=== PATIENT | female | born 1980 | race Caucasian/White ===

== ENCOUNTER 2016-07-06 18:51 | Emergency (ER) | payer MEDICAID, OTHER ==
[~2016-07-06] VITALS: Ht 157.5 cm; Wt 57.0 kg
[~2016-07-06 18:51] MED LIST: NITR-58; PHEN-616; [UNRECOGNIZED DRUG - OTHER]
[2016-07-06 19:02] VITALS: Ht 157.5 cm; Wt 57.0 kg
--- NOTE | 2016-07-06 19:23 | ERA ---
ER Documentation Chief Complaint Date/Time DATE: 07/06/16 TIME: 19:22 Chief Complaint dizziness HPI The patient is a 35-year-old female, presenting to the ER because of intermittent dizziness for the last 4-5 days. She denies syncope, near syncope , weakness, neck pain, chest pain, dyspnea, abdominal pain, vomiting, dysuria, diarrhea. She does not smoke, drink Past medical history: None Past surgical history: Tonsillectomy ROS All systems reviewed and are negative except as per history of present illness. Medications Home Meds Reported Medications [Nortin] No Conflict Check 01/09/10 Phenazopyridine Hcl* (Phenazopyridine Hcl*) 200 Mg Tablet 01/09/10 Nitrofurantoin Monohyd Macrocr* (Macrobid*) 100 Mg Capsr 01/09/10 Allergies Allergies: Coded Allergies: No Known Allergy (Verified Allergy, Mild, 07/15/10) No Known Drug Allergy (Verified Allergy, Mild, 01/09/10) PMhx/Soc History of Surgery: No Anesthesia Reaction: No Hx Neurological Disorder: No Hx Respiratory Disorders: No Hx Cardiac Disorders: No Hx Psychiatric Problems: No Hx Miscellaneous Medical Probl: No Hx Alcohol Use: No Hx Substance Use: No Hx Tobacco Use: No Physical Exam Vitals Vital Signs Date Time Temp Pulse Resp B/P Pulse Ox O2 Delivery O2 Flow Rate FiO2 07/06/16 19:02 98.5 85 20 124/81 98 Physical Exam Const: No acute distress. Head: Atraumatic. Eyes: Normal Conjunctiva. ENT: Normal External Ears, Nose and Mouth. Bilateral tympanic membranes and oropharynx are within normal limits Neck: Full range of motion. No meningismus. Resp: Clear to auscultation bilaterally. Cardio: Regular rate and rhythm, no murmurs. Abd: Soft, non distended, normal bowel sounds, non tender. Skin: No petechiae or rashes. Back: No midline or flank tenderness. Ext: No cyanosis, or edema. Neur: Awake and alert. No focal deficit Psych: Normal Mood and Affect. Result Diagram: 07/06/16201307/06/162013 Results 24 hrs Laboratory Tests Test 07/06/16 20:14 07/06/16 20:26 White Blood Count 4.610^3/ul Red Blood Count 4.9210^6/ul Hemoglobin 12.3g/dl Hematocrit 39.1% Mean Corpuscular Volume 79.5fl Mean Corpuscular Hemoglobin 25.0pg Mean Corpuscular Hemoglobin Concent 31.5g/dl Red Cell Distribution Width 13.5% Platelet Count 60256^3/UL Mean Platelet Volume 12.7fl Neutrophils % 36.7% Lymphocytes % 42.7% Monocytes % 12.2% Eosinophils % 7.8% Basophils % 0.4% Nucleated Red Blood Cells % 0.0/100WBC Neutrophils # 1.710^3/ul Lymphocytes # 2.010^3/ul Monocytes # 0.610^3/ul Eosinophils # 0.410^3/ul Basophils # 0.010^3/ul Nucleated Red Blood Cells # 0.010^3/ul Sodium Level 140mmol/L Potassium Level 3.9mmol/L Chloride Level 106mmol/L Carbon Dioxide Level 24mmol/L Anion Gap 14 Blood Urea Nitrogen 11mg/dl Creatinine 0.80mg/dl Glucose Level 108mg/dl Calcium Level 9.1mg/dl Bedside Glucose 110mg/dL Procedures/MDM EKG: Read by emergency physician Rate/Rhythm: Normal Sinus Rhythm 71 beats/min QRS, ST, T-waves: No ST elevation, nonspecific T abnormality, no PVC Impression: Abnormal EKG MEDICAL MAKING DECISION: The patient is a 35-year-old female, presenting with acute dizziness of unclear etiology. The differential diagnoses considered include but are not limited to central causes such as cerebellar infarct, cerebellar hemorrhage, cerebellar tumor, acoustic neuroma, peripheral causes such as benign positional vertigo, labyrinthitis, medication, Meniere's disease. Departure Diagnosis: Primary Impression: Dizziness Condition: Good Comments She was discharged with Antivert I discussed the findings with the patient. I advised the patient to follow-up with the primary physician in about 1-2 days, sooner if needed and return if any concern. The patient's blood pressure was elevated (>120/80) but appears stable without evidence of hypertension emergency or urgency. The patient was counseled about the risks of hypertension and urged to pursue outpatient monitoring and therapy within a week with their primary care physician. ADALGISA OCONNOR MD Jul 06, 2016 19:22
[2016-07-06 20:25] LABS: ADD SCAN DIFF NO
[2016-07-06 20:36] LABS: BASOPHILS % 0.4 % (0.0-2.0); EOSINOPHILS # 0.4 10^3/ul (0.0-0.5); EOSINOPHILS % 7.8 % (0.0-7.0); HEMATOCRIT 39.1 % (37.0-47.0); HEMOGLOBIN 12.3 g/dl (12.0-16.0); LYMPHOCYTES % 42.7 % (15.0-51.0); MEAN CORPUSCULAR HGB CONC 31.5 g/dl (32.0-37.0); MEAN CORPUSCULAR VOLUME 79.5 fl (82.0-101.0); MEAN PLATELET VOLUME 12.7 fl (7.4-10.4); MONOCYTE # 0.6 10^3/ul (0.3-0.9); MONOCYTES % 12.2 % (0.0-11.0); NEUTROPHIL # 1.7 10^3/ul (1.6-7.5); NEUTROPHILS % 36.7 % (39.0-77.0); PLATELET COUNT 252 10^3/UL (140-415); POTASSIUM 3.9 mmol/L (3.5-5.1); RED BLOOD COUNT 4.92 10^6/ul (4.20-5.40); RED CELL DISTRIBUTION WIDTH 13.5 % (11.5-14.5); WHITE BLOOD COUNT 4.6 10^3/ul (4.8-10.8)
[2016-07-06 20:39] LABS: CREATININE 0.8 mg/dl (0.44-1.00)
[2016-07-06 20:40] LABS: CALCIUM 9.1 mg/dl (8.4-10.2)
[2016-07-06] MEDS ORDERED: MECL12.574 PO (20:45)
[2016-07-06 21:00] VITALS: BP 108/73; PULSE 76; RESP 16
== END 2016-07-06 21:00 | disposition home or self-care (01) ==
LOC: FTE 18:51
DX: R42 Dizziness and giddiness (principal)
CPT/HCPCS: 36415; 80048; 82962; 85025; 93005

== ENCOUNTER 2016-11-18 10:31 | Emergency (ER) | payer MEDICAID, OTHER ==
[~2016-11-18] VITALS: Ht 160 cm; Wt 57.5 kg
[~2016-11-18 10:31] MED LIST changes: +MECL12.574 PO
[2016-11-18 10:34] VITALS: Ht 160 cm; Wt 57.5 kg
[2016-11-18] MEDS ORDERED: HYDROCODONE/APAP (5/325) TAB PO ONE (11:30)
[2016-11-18 11:44] LABS: ADD UMIC YES; UR ASCORBIC ACID NEGATIVE (NEGATIVE); UR BILIRUBIN (Dip) NEGATIVE (NEGATIVE); UR BLOOD (Dip) 1+ mg/dL (NEGATIVE); UR CLARITY CLEAR (CLEAR); UR COLOR STRAW (YELLOW); UR GLUCOSE (Dip) NEGATIVE (NEGATIVE); UR KETONES (Dip) NEGATIVE (NEGATIVE); UR LEUKOCYTE ESTERASE (Dip) NEGATIVE Leu/ul (NEGATIVE); UR NITRITE (Dip) NEGATIVE (NEGATIVE); UR RBC 0 /HPF (0-5); UR SPECIFIC GRAVITY (Dip) 1.008 (1.003-1.030); UR TOTAL PROTEIN (Dip) NEGATIVE (NEGATIVE); UR UROBILINOGEN (Dip) NEGATIVE (NEGATIVE)
[2016-11-18 11:49] LABS: ALBUMIN 4.1 g/dl (3.3-4.9); ALBUMIN/GLOBULIN RATIO 1.13; BILIRUBIN,INDIRECT 0.3 mg/dl (0-1.1); BILIRUBIN,TOTAL 0.3 mg/dl (0.2-1.3); CREATININE 0.76 mg/dl (0.44-1.00); POTASSIUM 3.9 mmol/L (3.5-5.1); TOTAL PROTEIN 7.7 g/dl (6.1-8.1)
--- NOTE | 2016-11-18 11:53 | RADRPT ---
PROCEDURE: US Pelvis. CLINICAL INDICATION: Pelvic pain. TECHNIQUE: Multiple sonographic images of the pelvis were obtained utilizing a transabdominal and endovaginal technique. The images were reviewed on a PACS workstation. COMPARISON: Pelvic ultrasound from 02/15/2008 FINDINGS: The uterus is visualized and measures 7.9 x 4.2 x 6.2 cm. The endometrial echo complex is normal and measures 8.4 mm. There is no evidence for free fluid. The right ovary has a normal echotexture and measures 2.8 x 1.4 x 1.8 cm. The left ovary has a normal echotexture and measures 2.5 x 1.4 x 1.7 c m. No adnexal masses are noted. IMPRESSION: 1. Unremarkable pelvic ultrasound. RPTAT: [facility] Physician Humberto Date Time Electronically viewed and signed by Physician Humberto on 11/18/2016 11:52 /
--- NOTE | 2016-11-18 12:11 | RADRPT ---
PROCEDURE: CT Abdomen and pelvis without contrast. CLINICAL INDICATION: Pelvic pain for 1 week TECHNIQUE: CT scan of the abdomen and pelvis without contrast was performed on a multidetector hig h-resolution CT scan. . Coronal and sagittal reformatted images were obtained from the axial cox monett e images. Standard CT scan of the abdomen pelvis without contrast protocols were performed. The total exam CTDI equals 6.1 a mGy and the total exam DLP equals 316.57 mGy-cm. One or more of the following dose reduction techniques were used: - Automated exposure control. - Adjustment of the mA and/or kV according to patient size. Use of iterative reconstruction technique. COMPARISON: Pelvic ultrasound same day FINDINGS: The appendix is unremarkable. There is a tiny hiatal hernia. The stomach is otherwise unremarkable . The small and large bowel are unremarkable. Negative for intra-abdominal free air, free fluid, a bscesses or lymphadenopathy. The kidneys are normal in size without hydronephrosis or intra renal masses bilaterally. There is a punctate 1-2 mm inferior left renal nonobstructing calcified calculus. No other calcified renal ca lculi. The urinary bladder is unremarkable. The uterus is anteverted anteflexed but otherwise unre markable. No evidence of adnexal masses. The liver spleen pancreas and adrenal glands are unremarkable. The gallbladder is unremarkable and there is no evidence biliary ductal dilation. The aorta is unremarkable. The abdominal and pelvic yee are unremarkable. The lung bases are unr emarkable. The osseous structures are unremarkable. IMPRESSION: 1. Punctate 1-2 mm inferior left renal nonobstructing calcified calculus. No other urinary calcifi ed calculi. No obstructive uropathy. 2. Unremarkable appendix. 3. Tiny hiatal hernia. RPTAT:[facility] Physician Marielle Date Time Electronically viewed and signed by Physician Marielle on 11/18/2016 12:11 BM/
[2016-11-18 12:48] LABS: BASOPHILS % 0.8 % (0.0-2.0); EOSINOPHILS # 0.2 10^3/ul (0.0-0.5); EOSINOPHILS % 4.4 % (0.0-7.0); HEMATOCRIT 36.7 % (37.0-47.0); HEMOGLOBIN 11.8 g/dl (12.0-16.0); LYMPHOCYTES # 1.9 10^3/ul (0.8-2.9); LYMPHOCYTES % 37.5 % (15.0-51.0); MEAN CORPUSCULAR HGB CONC 32.2 g/dl (32.0-37.0); MEAN PLATELET VOLUME 12.4 fl (7.4-10.4); MONOCYTE # 0.4 10^3/ul (0.3-0.9); MONOCYTES % 7.5 % (0.0-11.0); NEUTROPHIL # 2.5 10^3/ul (1.6-7.5); NEUTROPHILS % 49.4 % (39.0-77.0); PLATELET COUNT 215 10^3/UL (140-415); RED BLOOD COUNT 4.53 10^6/ul (4.20-5.40); RED CELL DISTRIBUTION WIDTH 13.9 % (11.5-14.5)
[2016-11-18] MEDS ORDERED: NAPR-260 PO (12:55)
[2016-11-18] MEDS ORDERED: TAMS-14 PO (12:55)
--- NOTE | 2016-11-18 13:44 | ERD ---
ER Documentation Chief Complaint Date/Time DATE: 11/18/16 TIME: 13:36 Chief Complaint ap x 1 week, back pain x 1 mos HPI 35-year-old female complaining of abdominal pain 1 week and back pain 1 month. Patient states that the pain is constant. It feels like a sharp stabbing pain on the inside. Primary located in the left lower quadrant. She has not taken any medications for this pain. No fevers. Last are much previous October 21. Patient is also complaining of a cystlike structure in her axilla. Patient states has been there for multiple years, she was seen at the surgery center and told it was nothing to worry about. Denies medical problems NKDA Surgeries: Tonsillitis Denies smoking ROS All systems reviewed and are negative except as per history of present illness. Medications Home Meds Active Scripts Naproxen* (Naprosyn*) 500 Mg Tablet, 500 MG PO BID Y for PAIN AND/OR INFLAMMATION, #30 TAB Prov:MARI LONDON PA-C 11/18/16 Tamsulosin Hcl* (Flomax*) 0.4 Mg Cap.er.24h, 0.4 MG PO QPM, #30 CAP Prov:MARI LONDON PA-C 11/18/16 Meclizine Hcl* (Antivert*) 12.5 Mg Tab, 25 MG PO Q6H Y for DIZZINESS, #20 TAB Prov:ADALGISA OCONNOR MD 07/06/16 Reported Medications [Nortin] No Conflict Check 01/09/10 Phenazopyridine Hcl* (Phenazopyridine Hcl*) 200 Mg Tablet 01/09/10 Nitrofurantoin Monohyd Macrocr* (Macrobid*) 100 Mg Capsr 01/09/10 Allergies Allergies: Coded Allergies: No Known Allergy (Verified Allergy, Mild, 07/15/10) No Known Drug Allergy (Verified Allergy, Mild, 01/09/10) PMhx/Soc History of Surgery: Yes (TONSILECTOMY 2004) Anesthesia Reaction: No Hx Neurological Disorder: No Hx Respiratory Disorders: No Hx Cardiac Disorders: No Hx Psychiatric Problems: No Hx Miscellaneous Medical Probl: No Hx Alcohol Use: No Hx Substance Use: No Hx Tobacco Use: No Smoking Status: Never smoker Physical Exam Vitals Vital Signs Date Time Temp Pulse Resp B/P Pulse Ox O2 Delivery O2 Flow Rate FiO2 11/18/16 10:34 97.8 69 18 139/63 99 Physical Exam Resp: Clear to auscultation bilaterally Cardio: Regular rate and rhythm, no murmurs Abd: Soft, non tender, non distended. Normal bowel sounds. No rebound tenderness. Skin: No petechiae or rashes. fluctuant mass with no erythema under bilateral axilla. No streaking. Back: No midline or flank tenderness. No midline tenderness. No john stepoffs. Result Diagram: 11/18/16 1117 11/18/16 1117 Results 24 hrs Laboratory Tests Test 11/18/16 11:17 White Blood Count 5.010^3/ul Red Blood Count 4.5310^6/ul Hemoglobin 11.8g/dl Hematocrit 36.7% Mean Corpuscular Volume 81.0fl Mean Corpuscular Hemoglobin 26.0pg Mean Corpuscular Hemoglobin Concent 32.2g/dl Red Cell Distribution Width 13.9% Platelet Count 35279^3/UL Mean Platelet Volume 12.4fl Neutrophils % 49.4% Lymphocytes % 37.5% Monocytes % 7.5% Eosinophils % 4.4% Basophils % 0.8% Nucleated Red Blood Cells % 0.0/100WBC Neutrophils # 2.510^3/ul Lymphocytes # 1.910^3/ul Monocytes # 0.410^3/ul Eosinophils # 0.210^3/ul Basophils # 0.010^3/ul Nucleated Red Blood Cells # 0.010^3/ul Urine Color STRAW Urine Clarity CLEAR Urine pH 5.0 Urine Specific [place] 1.008 Urine Ketones NEGATIVEmg/dL Urine Nitrite NEGATIVEmg/dL Urine Bilirubin NEGATIVEmg/dL Urine Urobilinogen NEGATIVEmg/dL Urine Leukocyte Esterase NEGATIVELeu/ul Urine Microscopic RBC 0/HPF Urine Microscopic WBC 0/HPF Urine Hemoglobin 1+mg/dL Urine Glucose NEGATIVEmg/dL Urine Total Protein NEGATIVEmg/dl Sodium Level 143mmol/L Potassium Level 3.9mmol/L Chloride Level 104mmol/L Carbon Dioxide Level 23mmol/L Anion Gap 20 Blood Urea Nitrogen 10mg/dl Creatinine 0.76mg/dl Glucose Level 92mg/dl Calcium Level 9.0mg/dl Total Bilirubin 0.3mg/dl Direct Bilirubin 0.00mg/dl Indirect Bilirubin 0.3mg/dl Aspartate Amino Transf (AST/SGOT) 20IU/L Alanine Aminotransferase (ALT/SGPT) 25IU/L Alkaline Phosphatase 58IU/L Total Protein 7.7g/dl Albumin 4.1g/dl Globulin 3.60g/dl Albumin/Globulin Ratio 1.13 Lipase 173U/L Current Medications Medications (Trade) Dose Ordered Sig/Aryan Route PRN Reason Start Time Stop Time Status Last Admin Dose Admin Acetaminophen/ Hydrocodone Bitart ([place] (5/325)) 1 tab ONCE ONCE PO 11/18/16 11:30 11/18/16 11:31 DC 11/18/16 12:02 Procedures/MDM DIAGNOSTIC IMAGING REPORT Patient: CECIL GIORDANO : 1980 Age: 35 Sex: F MR #: [id number] DOS: 11/18/16 1101 Ordering MD: CHARLES LONDON PA-C Location: [facility] Room/Bed: PROCEDURE: CT Abdomen and pelvis without contrast. CLINICAL INDICATION: Pelvic pain for 1 week TECHNIQUE: CT scan of the abdomen and pelvis without contrast was performed on a multidetector high-resolution CT scan. . Coronal and sagittal reformatted images were obtained from the axial source images. Standard CT scan of the abdomen pelvis without contrast protocols were performed. The total exam CTDI equals 6.1 a mGy and the total exam DLP equals 316.57 mGy- cm. One or more of the following dose reduction techniques were used: - Automated exposure control. - Adjustment of the mA and/or kV according to patient size. Use of iterative reconstruction technique. COMPARISON: Pelvic ultrasound same day FINDINGS: The appendix is unremarkable. There is a tiny hiatal hernia. The stomach is otherwise unremarkable. The small and large bowel are unremarkable. Negative for intra-abdominal free air, free fluid, abscesses or lymphadenopathy. The kidneys are normal in size without hydronephrosis or intra renal masses bilaterally. There is a punctate 1-2 mm inferior left renal nonobstructing calcified calculus. No other calcified renal calculi. The urinary bladder is unremarkable. The uterus is anteverted anteflexed but otherwise unremarkable. No evidence of adnexal masses. The liver spleen pancreas and adrenal glands are unremarkable. The gallbladder is unremarkable and there is no evidence biliary ductal dilation. The aorta is unremarkable. The abdominal and pelvic yee are unremarkable. The lung bases are unremarkable. The osseous structures are unremarkable. IMPRESSION: 1. Punctate 1-2 mm inferior left renal nonobstructing calcified calculus. No other urinary calcified calculi. No obstructive uropathy. 2. Unremarkable appendix. 3. Tiny hiatal hernia. DIAGNOSTIC IMAGING REPORT Patient: CECIL GIORDANO : 1980 Age: 35 Sex: F MR #: [id number] DOS: 11/18/16 1101 Ordering MD: CHARLES LONDON PA-C Location: E Room/Bed: PROCEDURE: US Pelvis. CLINICAL INDICATION: Pelvic pain. TECHNIQUE: Multiple sonographic images of the pelvis were obtained utilizing a transabdominal and endovaginal technique. The images were reviewed on a PACS workstation. COMPARISON: Pelvic ultrasound from 02/15/2008 FINDINGS: The uterus is visualized and measures 7.9 x 4.2 x 6.2 cm. The endometrial echo complex is normal and measures 8.4 mm. There is no evidence for free fluid. The right ovary has a normal echotexture and measures 2.8 x 1.4 x 1.8 cm. The left ovary has a normal echotexture and measures 2.5 x 1.4 x 1.7 cm. No adnexal masses are noted. IMPRESSION: 1. Unremarkable pelvic ultrasound. ER Course: [place] given in ED. Urine negative MDM: 35 yr old female complaining of abdominal pain. I have low suspicion for choledocholithiasis, cholecystitis, cholangitis. Patient not have been pain in the right upper quadrant. Patient exam is not concerning. I will suspicion for bowel obstruction, appendicitis, pelvic emergency, ectopic , pyelonephritis, or other acute abdominal emergencies. Patient's CT scan is within normal limits and blood work is within normal limits. I have low suspicion for acute renal failure patients BUN/creatinine levels are within normal limits. Patient's pain is likely associated with nonobstructing calculi seen on CT scan. A low suspicion for abscess within the axilla. Patient's exam is within normal limits and is likely associated with a lipoma. There is no erythema or redness. Patient's vital signs are stable. Patient is discharged with pain medication and recommended to follow-up with primary care doctor within 1 to days for close evaluation. Patient was told if symptoms change or worsen to return to the ER immediately. Patient understood and complied. All paperwork and results given at the time of discharge. Departure Diagnosis: Primary Impression: Kidney stone Additional Impression: Lipoma Condition: Stable Patient Instructions: Kidney Stone W/ Colic Referrals: COMMUNITY CLINICS YOU HAVE RECEIVED A MEDICAL SCREENING EXAM AND THE RESULTS INDICATE THAT YOU DO NOT HAVE A CONDITION THAT REQUIRES URGENT TREATMENT IN THE EMERGENCY DEPARTMENT. FURTHER EVALUATION AND TREATMENT OF YOUR CONDITION CAN WAIT UNTIL YOU ARE SEEN IN YOUR DOCTORS OFFICE WITHIN THE NEXT 1-2 DAYS. IT IS YOUR RESPONSIBILITY TO MAKE AN APPOINTMENT FOR FOLOW-UP CARE. IF YOU HAVE A PRIMARY DOCTOR --you should call your primary doctor and schedule an appointment IF YOU DO NOT HAVE A PRIMARY DOCTOR YOU CAN CALL OUR PHYSICIAN REFERRAL HOTLINE AT IF YOU CAN NOT AFFORD TO SEE A PHYSICIAN YOU CAN CHOSE FROM THE FOLLOWING [facility] [address] [facility] [address] [facility] [address] [facility] [address] [facility] [address] [facility] [facility] [address] Additional Instructions: FOLLOW UP WITH YOUR PRIMARY CARE PHYSICIAN TOMORROW.Return to this facility if you are not improving as expected. MARI LONDON PA-C Nov 18, 2016 13:44
== END 2016-11-18 13:16 | disposition home or self-care (01) ==
LOC: FTE 10:31
DX: N20.0 Calculus of kidney (principal); D17.9 Benign lipomatous neoplasm, unspecified; R10.2 Pelvic and perineal pain
CPT/HCPCS: 74176; 76856; 80053; 81001; 83690; 85025; Z7610; 36415

== ENCOUNTER 2016-11-27 15:53 | Emergency (ER) | payer OTHER ==
[~2016-11-27] VITALS: Wt 57.0 kg
[~2016-11-27 15:53] MED LIST changes: +NAPR-260 PO; +TAMS-14 PO
[2016-11-27] MEDS ORDERED: KETOROLAC 30 MG INJ IM STA (16:30)
[2016-11-27] MEDS ORDERED: MECLIZINE 12.5 MG TAB PO ONE (16:30)
[2016-11-27 17:09] LABS: BASOPHILS % 0.4 % (0.0-2.0); EOSINOPHILS # 0.3 10^3/ul (0.0-0.5); EOSINOPHILS % 4.1 % (0.0-7.0); HEMATOCRIT 37.3 % (37.0-47.0); HEMOGLOBIN 11.9 g/dl (12.0-16.0); LYMPHOCYTES # 2.6 10^3/ul (0.8-2.9); LYMPHOCYTES % 37.6 % (15.0-51.0); MEAN CORPUSCULAR HGB CONC 31.9 g/dl (32.0-37.0); MEAN CORPUSCULAR VOLUME 81.4 fl (82.0-101.0); MEAN PLATELET VOLUME 11.8 fl (7.4-10.4); MONOCYTE # 0.4 10^3/ul (0.3-0.9); MONOCYTES % 6.4 % (0.0-11.0); NEUTROPHILS % 51.2 % (39.0-77.0); PLATELET COUNT 253 10^3/UL (140-415); RED BLOOD COUNT 4.58 10^6/ul (4.20-5.40); RED CELL DISTRIBUTION WIDTH 13.5 % (11.5-14.5); WHITE BLOOD COUNT 6.9 10^3/ul (4.8-10.8)
[2016-11-27 17:18] LABS: ADD UMIC YES; UR ASCORBIC ACID NEGATIVE (NEGATIVE); UR BACTERIA FEW /HPF (NONE SEEN); UR BILIRUBIN (Dip) NEGATIVE (NEGATIVE); UR BLOOD (Dip) 1+ mg/dL (NEGATIVE); UR CLARITY CLEAR (CLEAR); UR COLOR STRAW (YELLOW); UR GLUCOSE (Dip) NEGATIVE (NEGATIVE); UR KETONES (Dip) NEGATIVE (NEGATIVE); UR LEUKOCYTE ESTERASE (Dip) 1+ Leu/ul (NEGATIVE); UR NITRITE (Dip) NEGATIVE (NEGATIVE); UR RBC 0 /HPF (0-5); UR SPECIFIC GRAVITY (Dip) 1.003 (1.003-1.030); UR TOTAL PROTEIN (Dip) NEGATIVE (NEGATIVE); UR UROBILINOGEN (Dip) NEGATIVE (NEGATIVE)
[2016-11-27 17:35] LABS: ALBUMIN/GLOBULIN RATIO 1.1; CALCIUM 9.6 mg/dl (8.4-10.2); CREATININE 0.84 mg/dl (0.44-1.00); POTASSIUM 4.1 mmol/L (3.5-5.1)
[2016-11-27 17:39] LABS: ALBUMIN 4.3 g/dl (3.3-4.9); BILIRUBIN,INDIRECT 0.1 mg/dl (0-1.1); BILIRUBIN,TOTAL 0.1 mg/dl (0.2-1.3); TOTAL PROTEIN 8.2 g/dl (6.1-8.1)
[2016-11-27] MEDS ORDERED: CEPH-443 PO (18:02)
[2016-11-27 19:00] VITALS: BP 120/70; PULSE 88; RESP 18; TEMP 98.2
--- NOTE | 2016-11-27 20:28 | ERD ---
ER Documentation Chief Complaint Date/Time DATE: 11/27/16 TIME: 20:24 Chief Complaint MID-BACK PAIN, ONSET 10 DAYS AGO HPI This patient is a 35-year-old female presenting to the emergency department with complaints of bilateral mid back pain which onset approximately 10 days ago. She also reports vague abdominal cramping which is related to gas. She is also had 8 episodes of diarrhea today. She denies blood in the diarrhea. She was recently diagnosed with a kidney stone on CT abdomen and pelvis without contrast proximally 9 days ago. The stone was not obstructing. She continues to have pain secondary to this. Additionally she reports mild pain on urination and some vague dizziness. She denies fevers, chills, nausea, vomiting , dizziness, chest pain, shortness of breath, or other symptoms currently. ROS All systems reviewed and are negative except as per history of present illness. Medications Home Meds Active Scripts Cephalexin* (Keflex*) 500 Mg Capsule, 500 MG PO TID for 7 Days, #21 CAP Prov:HESHAM ENGLAND PA-C 11/27/16 Naproxen* (Naprosyn*) 500 Mg Tablet, 500 MG PO BID Y for PAIN AND/OR INFLAMMATION, #30 TAB Prov:MARI LONDON PA-C 11/18/16 Tamsulosin Hcl* (Flomax*) 0.4 Mg Cap.er.24h, 0.4 MG PO QPM, #30 CAP Prov:MARI LONDON PA-C 11/18/16 Meclizine Hcl* (Antivert*) 12.5 Mg Tab, 25 MG PO Q6H Y for DIZZINESS, #20 TAB Prov:ADALGISA OCONNOR MD 07/06/16 Reported Medications [Nortin] No Conflict Check 01/09/10 Phenazopyridine Hcl* (Phenazopyridine Hcl*) 200 Mg Tablet 01/09/10 Nitrofurantoin Monohyd Macrocr* (Macrobid*) 100 Mg Capsr 01/09/10 Allergies Allergies: Coded Allergies: No Known Allergy (Verified Allergy, Mild, 07/15/10) No Known Drug Allergy (Verified Allergy, Mild, 01/09/10) PMhx/Soc History of Surgery: No Anesthesia Reaction: No Hx Neurological Disorder: No Hx Respiratory Disorders: No Hx Cardiac Disorders: No Hx Psychiatric Problems: No Hx Miscellaneous Medical Probl: Yes (Kid) Hx Alcohol Use: No Hx Substance Use: No Hx Tobacco Use: No Smoking Status: Never smoker Physical Exam Vitals Vital Signs Date Time Temp Pulse Resp B/P Pulse Ox O2 Delivery O2 Flow Rate FiO2 11/27/16 19:00 98.2 88 18 120/70 99 Room Air 11/27/16 15:55 97.9 75 18 125/73 99 Physical Exam Const: Nontoxic, well-appearing female in no acute distress. Head: Atraumatic Eyes: Normal Conjunctiva ENT: Normal External Ears, Nose and Mouth. Neck: Full range of motion..~ No meningismus. Resp: Clear to auscultation bilaterally Cardio: Regular rate and rhythm, no murmurs Abd: Soft, non tender, non distended. Normal bowel sounds Skin: No petechiae or rashes Back: No midline or flank tenderness Ext: No cyanosis, or edema Neur: Awake and alert Psych: Normal Mood and Affect Result Diagram: 11/27/16 1654 11/27/16 1654 Results 24 hrs Laboratory Tests Test 11/27/16 16:54 11/27/16 16:59 White Blood Count 6.910^3/ul Red Blood Count 4.5810^6/ul Hemoglobin 11.9g/dl Hematocrit 37.3% Mean Corpuscular Volume 81.4fl Mean Corpuscular Hemoglobin 26.0pg Mean Corpuscular Hemoglobin Concent 31.9g/dl Red Cell Distribution Width 13.5% Platelet Count 92859^3/UL Mean Platelet Volume 11.8fl Neutrophils % 51.2% Lymphocytes % 37.6% Monocytes % 6.4% Eosinophils % 4.1% Basophils % 0.4% Nucleated Red Blood Cells % 0.0/100WBC Neutrophils # (Manual) 410^3/ul Lymphocytes # 2.610^3/ul Monocytes # 0.410^3/ul Eosinophils # 0.310^3/ul Basophils # 0.010^3/ul Nucleated Red Blood Cells # 0.010^3/ul Sodium Level 142mmol/L Potassium Level 4.1mmol/L Chloride Level 100mmol/L Carbon Dioxide Level 27mmol/L Anion Gap 19 Blood Urea Nitrogen 13mg/dl Creatinine 0.84mg/dl Glucose Level 92mg/dl Calcium Level 9.6mg/dl Total Bilirubin 0.1mg/dl Direct Bilirubin 0.00mg/dl Indirect Bilirubin 0.1mg/dl Aspartate Amino Transf (AST/SGOT) 22IU/L Alanine Aminotransferase (ALT/SGPT) 28IU/L Alkaline Phosphatase 64IU/L Total Protein 8.2g/dl Albumin 4.3g/dl Globulin 3.90g/dl Albumin/Globulin Ratio 1.10 Urine Color STRAW Urine Clarity CLEAR Urine pH 6.0 Urine Specific [place] 1.003 Urine Ketones NEGATIVEmg/dL Urine Nitrite NEGATIVEmg/dL Urine Bilirubin NEGATIVEmg/dL Urine Urobilinogen NEGATIVEmg/dL Urine Leukocyte Esterase 1+Julia/ul Urine Microscopic RBC 0/HPF Urine Microscopic WBC 2/HPF Urine Bacteria FEW/HPF Urine Hemoglobin 1+mg/dL Urine Glucose NEGATIVEmg/dL Urine Total Protein NEGATIVEmg/dl Current Medications Medications (Trade) Dose Ordered Sig/Aryan Route PRN Reason Start Time Stop Time Status Last Admin Dose Admin Ketorolac Tromethamine (Toradol) 30 mg ONCE STAT IM 11/27/16 16:30 11/27/16 16:33 DC 11/27/16 18:40 Meclizine HCl (Antivert) 12.5 mg ONCE ONCE PO 11/27/16 16:30 11/27/16 16:33 DC 11/27/16 18:39 Procedures/MDM 35-year-old female presenting to the emergency department with complaints of bilateral mid back pain, pain on urination, diarrhea, some vague dizziness, and abdominal cramping. She is given p.o. meclizine and IM Toradol for dizziness and pain and was feeling improved on reevaluation. CBC showed very slight anemia at 11.9, and she may supplement with [id number] ferrous sulfate as needed. Repeat imaging was not indicated at this time since patient had a recent CT abdomen and pelvis without contrast 9 days ago which showed a nonobstructing calculus. Chemistry panel was within normal limits. Urinalysis showed urinary tract infection and she was given a prescription for cephalexin as treatment as an outpatient. UTI was uncomplicated. The patient is to continue taking Flomax and naproxen for nonobstructing calculus. She is to have close follow-up with her primary care physician. Strict ER return precautions were discussed. I have low suspicion for obstructing calculus, acute renal failure, sepsis, or other emergent conditions. Departure Diagnosis: Primary Impression: Urinary tract infection Condition: Fair Patient Instructions: Understanding Urinary Tract Infections (UTIs) Additional Instructions: Follow up with your PCP within the next 1-3 days for a repeat evaluation. If you require a referral to a specialist, your Primary Care Provider may be able to provide this for you. In most patient cases, a referral is not required. If you have further questions regarding this matter, please ask your Primary Care Provider. Return the the emergency department immediately if symptoms worsen or change. If you have any questions regarding medications, ask your pharmacist or us before you leave. If any adverse reactions, occur while taking your medications, discontinue the treatment and return to the emergency department immediately. If any new or worsening symptoms, uncontrolled fevers, or other unexplained symptoms occur, return to the emergency department immediately. Take your medications as directed, and complete the entire course of treatment. HESHAM ENGLAND PA-C Nov 27, 2016 20:28
== END 2016-11-27 19:11 | disposition home or self-care (01) ==
LOC: FTE 15:53
DX: N39.0 Urinary tract infection, site not specified (principal)
CPT/HCPCS: 80053; 81001; 85025; 96372; J1885; Z7502; Z7610

== ENCOUNTER 2017-08-07 10:05 | Emergency (ER) | END 2017-08-07 11:47 | disposition home or self-care (01) ==

== ENCOUNTER 2018-04-27 18:26 | Emergency (ER) | payer MEDICAID, OTHER ==
[~2018-04-27 18:26] MED LIST changes: +CEPH-443 PO; +FAMO40TA5 PO; +MECL-77 PO; -NAPR-260 PO; +NAPR-985 PO; +ONDA4TAB14 PO; -PHEN-616; +PHEN-717
[2018-04-27 18:42] VITALS: BP 124/80; PULSE 88; RESP 20
[2018-04-27] MEDS ORDERED: LORATADINE 10 MG TAB PO ONE (19:00)
--- NOTE | 2018-04-27 19:18 | ERD ---
ER Documentation Chief Complaint Chief Complaint Acute onset of allergic rhinitis. HPI 37-year-old female with history of multiple environmental allergies, suddenly, developed intense rhinorrhea and facial itching while the patient was here in the emergency department taking care of her son. She denies shortness of breath, no difficulty breathing, no facial or tongue swelling. She requested to be seen to get a prescription for antihistaminics. ROS All systems reviewed and are negative except as per history of present illness. Medications Home Meds Active Scripts Fexofenadine Hcl* (Fexofenadine Hcl*) 180 Mg Tablet, 180 MG PO DAILY, #30 TAB Prov:JERAMIE ALTAMIRANO MD 04/27/18 Montelukast Sodium* (Montelukast Sodium*) 10 Mg Tablet, 10 MG PO QHS, #30 TAB Prov:JERAMIE ALTAMIRANO MD 04/27/18 Famotidine* (Famotidine*) 40 Mg Tablet, 40 MG PO BID, #60 TAB Prov:DARREL KELLER PA-C 08/07/17 Meclizine Hcl* (Meclizine Hcl*) 25 Mg Tablet, 25 MG PO Q8H PRN for DIZZINESS, #30 TAB Prov:DARREL KELLER PA-C 08/07/17 Ondansetron (Ondansetron Odt) 4 Mg Tab.rapdis, 4 MG PO Q6H PRN for NAUSEA AND/OR VOMITING, #10 TAB Prov:DARREL KELLER PA-C 08/07/17 Cephalexin* (Keflex*) 500 Mg Capsule, 500 MG PO TID for 7 Days, #21 CAP Prov:HESHAM ENGLAND PA-C 11/27/16 Naproxen* (Naprosyn*) 500 Mg Tablet, 500 MG PO BID PRN for PAIN AND/OR INFLAMMATION, #30 TAB Prov:MARI LONDON PA-C 11/18/16 Tamsulosin Hcl* (Flomax*) 0.4 Mg Cap.er.24h, 0.4 MG PO QPM, #30 CAP Prov:MARI LONDON PA-C 11/18/16 Meclizine Hcl* (Antivert*) 12.5 Mg Tab, 25 MG PO Q6H PRN for DIZZINESS, #20 TAB Prov:ADALGISA OCONNOR MD 07/06/16 Reported Medications [Nortin] No Conflict Check 01/09/10 Phenazopyridine Hcl* (Phenazopyridine Hcl*) 200 Mg Tablet 01/09/10 Nitrofurantoin Monohyd Macrocr* (Macrobid*) 100 Mg Capsr 01/09/10 Allergies Allergies: Uncoded Allergies: CATS (Allergy, Mild, 04/27/18) DOGS (Allergy, Mild, 04/27/18) DUST (Allergy, Mild, 04/27/18) POLLEN (Allergy, Mild, 04/27/18) PMhx/Soc Medical and Surgical Hx: pt denies Medical Hx History of Surgery: Yes (tonsillectomy) Anesthesia Reaction: No Hx Neurological Disorder: No Hx Respiratory Disorders: No Hx Cardiac Disorders: No Hx Psychiatric Problems: No Hx Miscellaneous Medical Probl: Yes Hx Alcohol Use: No Hx Substance Use: No Hx Tobacco Use: No Smoking Status: Never smoker FmHx Family History: No diabetes, No coronary disease Physical Exam Vitals Date Temp Pulse Resp B/P (MAP) Pulse Ox O2 O2 Flow FiO2 Time Delivery Rate 04/27/18 99.7 88 20 124/80 96 Room Air 18:42 (95) Physical Exam Const: No acute distress Head: Atraumatic Eyes: Watery eyes with erythematous conjunctiva. ENT: Normal oropharynx, clear rhinorrhea Neck: Full range of motion. No meningismus. Resp: Clear to auscultation bilaterally Cardio: Regular rate and rhythm, no murmurs Abd: Soft, non tender, non distended. Normal bowel sounds Skin: No petechiae or rashes Back: No midline or flank tenderness Ext: No cyanosis, or edema Neur: Awake and alert Psych: Normal Mood and Affect Results 24 hrs Current Medications Medications Dose Sig/Aryan Start Time Status Last (Trade) Ordered Route PRN Stop Time Admin Dose Reason Admin Loratadine 10 mg ONCE ONCE 04/27/18 DC 04/27/18 (Claritin) PO 19:00 18:53 04/27/18 19:01 Procedures/MDM Vital signs stable, differential diagnosis include but not limited to: Upper versus lower respiratory infection, bacterial/viral/fungal etiology. Asthma, pneumonitis, allergies, less likely meningitis. Low suspicion for acute systemic infection. Physical examination and clinical presentation consistent most likely with acute allergic rhinitis. During the ED course the patient remained stable, no new complaints. Treatment options and clinical impression discussed with the patient who agrees with management. The patient is stable to be treated outpatient and will be di scharged home with a Rx for antihistaminics. some side effects of prescribed medications (headache, rash, nausea, vomiting, diarrhea, hypertension, interactions with other medications) were reviewed. The patient was instructed to follow up with the primary care provider in the next 48h. If symptoms persist, worsen or new symptoms develop, then patient should return to the ED immediately. Disclaimer: Inadvertent spelling and grammatical errors are likely due to EHR/dictation software use and do not reflect on the overall quality of patient care. Also, please note that the electronic time recorded on this note does not necessarily reflect the actual time of the patient encounter. Departure Diagnosis: Primary Impression: Rhinitis, allergic Condition: Stable Additional Instructions: Thank you very much for allowing us to participate in your care. Your health and safety is our top priority at [facility]. Call your primary care doctor TOMORROW for an appointment during the next 2-4 days and bring all the information and medications prescribed. Have prescriptions filled and follow precisely the directions on the label. If the symptoms get worse and your provider is unavailable, return to the Emergency Department immediately. JERAMIE ALTAMIRANO MD Apr 27, 2018 19:18
[2018-04-27] MEDS ORDERED: FEXO180T13 PO (19:19)
[2018-04-27] MEDS ORDERED: MONT10TA24 PO (19:19)
== END 2018-04-27 19:49 | disposition home or self-care (01) ==
LOC: FTE 18:26
DX: J30.9 Allergic rhinitis, unspecified (principal)
CPT/HCPCS: Z7502; Z7610; 99283